=== PATIENT | male | born 1950 | race Caucasian/White ===

== ENCOUNTER 2022-07-14 13:05 | Inpatient (IN) | payer OTHER ==
[~2022-07-14] VITALS: Ht 188 cm; Wt 100.0 kg
[2022-07-14 13:44] LABS: Basophils # (auto) 0 10 ^3/uL (0-0.2); Basophils % (auto) 0.5 % (0.0-2.0); Eosinophils # (auto) 0.1 10 ^3/uL (0-0.8); Eosinophils % (auto) 1.5 % (0.0-7.0); Hematocrit 41.2 % (41.0-53.0); Lymphocytes # (auto) 1.4 10 ^3/uL (0.4-5.4); Lymphocytes % (auto) 16.5 % (10.0-50.0); Mean Corpuscular Hemoglobin 30.5 pg (28.0-32.0); Mean Corpuscular Hgb Conc. 33.9 g/dL (32.0-36.0); Monocytes # (auto) 0.6 10 ^3/uL (0-1.3); Monocytes % (auto) 6.6 % (0.0-12.0); Neutrophils # (auto) 6.5 10 ^3/uL (1.6-8.6); Neutrophils % (auto) 74.9 % (37.0-80.0); Nucleated Red Blood Cells % 0.1 %; Red Blood Cells 4.57 10^6/uL (4.5-5.90); Red Cell Distribution Width 14.1 % (11.8-14.3); White Blood Cell 8.7 10^3/uL (4.4-10.8)
[2022-07-14 13:59] LABS: Albumin 3.6 g/dL (3.4-5.0); BUN/Creatinine Ratio 15.5; Potassium 4.9 mmol/L (3.5-5.1)
[2022-07-14 14:02] LABS: Bilirubin, Total 0.9 mg/dL (0.2-1.0); Total Protein 6.8 g/dL (6.4-8.2)
[2022-07-14] MEDS ORDERED: ASPirin 325 MG TAB PO ONE (14:15)
[2022-07-14] MEDS ORDERED: MORPHINE SULFATE 4 MG/ML SYR/VIAL IV PRN (16:45)
[2022-07-14] MEDS ORDERED: ACETAMINOPHEN 325 MG TAB PO PRN (16:45)
[2022-07-14] MEDS ORDERED: MAALOX PLUS or MAALOX 30 ML PO ONE (16:45)
[2022-07-14] MEDS ORDERED: METOPROLOL TARTRATE 1MG/1ML-5ML VIAL IV PRN (16:45)
[2022-07-14] MEDS ORDERED: NITROGLYCERIN 0.4 MG SL TAB SL PRN (16:45)
[2022-07-14] MEDS ORDERED: ONDANSETRON HCL 4 MG/2 ML VIAL IV PRN (16:45)
[2022-07-14] MEDS ORDERED: SODIUM CHLORIDE 0.9% 1,000 ML IV SCH (16:45)
[2022-07-14] MEDS ORDERED: OXYCODONE W/ ACETAMINOPHEN 5/325MG TABLET PO ONE (17:00)
[2022-07-14] MEDS ORDERED: MORPHINE SULFATE 4 MG/ML SYR/VIAL IV ONE (17:45)
[2022-07-14] MEDS: METOPROLOL TARTRATE 25 MG TAB PO SCH (22:00)
[2022-07-14] MEDS ORDERED: ATORVASTATIN 20 MG TAB PO SCH (22:00)
[2022-07-14] MEDS ORDERED: DEXTROSE (50%) 50ML SYRG IV PRN (22:30)
[2022-07-15] MEDS ORDERED: HYDROmorphone HCL 2 MG/ML VL/or syr IV ONE (01:45)
[2022-07-15 06:37] LABS: Basophils # (auto) 0 10 ^3/uL (0-0.2); Basophils % (auto) 0.4 % (0.0-2.0); Eosinophils # (auto) 0.1 10 ^3/uL (0-0.8); Eosinophils % (auto) 1.6 % (0.0-7.0); Hematocrit 38.3 % (41.0-53.0); Hemoglobin 12.7 g/dL (13.5-17.5); Lymphocytes # (auto) 1.5 10 ^3/uL (0.4-5.4); Lymphocytes % (auto) 23.4 % (10.0-50.0); Mean Corpuscular Hemoglobin 29.9 pg (28.0-32.0); Mean Corpuscular Hgb Conc. 33.1 g/dL (32.0-36.0); Mean Corpuscular Volume 90.3 fL (80.0-100.0); Monocytes # (auto) 0.5 10 ^3/uL (0-1.3); Monocytes % (auto) 7.1 % (0.0-12.0); Neutrophils # (auto) 4.4 10 ^3/uL (1.6-8.6); Neutrophils % (auto) 67.5 % (37.0-80.0); Nucleated Red Blood Cells % 0.1 %; Red Blood Cells 4.25 10^6/uL (4.5-5.90); Red Cell Distribution Width 14.6 % (11.8-14.3); White Blood Cell 6.6 10^3/uL (4.4-10.8)
[2022-07-15 06:41] LABS: Potassium 4.6 mmol/L (3.5-5.1)
[2022-07-15 06:45] LABS: Calcium 10.8 mg/dL (8.5-10.1)
[2022-07-15] MEDS: ACCU-CHEK COMFORT CURVE STRIP VI SCH ×2 (07:58→11:35)
[2022-07-15] MEDS: InsuLIN REG 1unit/0.01ml Soln (100units/ml) SC SCH ×2 (08:04→11:35)
[2022-07-15] MEDS ORDERED: ASPirin 81 mg TAB PO SCH (10:00)
[2022-07-15] MEDS ORDERED: DOCUSATE SOD 100 MG CAP PO SCH (10:00)
[2022-07-15] MEDS ORDERED: CLOPIDOGREL BISULFATE 75 MG TAB PO SCH (10:00)
[2022-07-15] MEDS ORDERED: LISINOPRIL 10 MG TAB PO SCH (10:00)
[2022-07-15] MEDS: METOPROLOL TARTRATE 25 MG TAB PO SCH (10:16)
[2022-07-15] MEDS ORDERED: HYDROcodone-ACET 5/325MG TAB PO PRN (11:15)
[2022-07-15 15:00] VITALS: BP 134/72
[2022-07-15] MEDS ORDERED: InsuLIN REG 1unit/0.01ml Soln (100units/ml) SC SCH (22:00)
== END 2022-07-15 15:46 | disposition left against medical advice (07) | DRG 313 ==
LOC: ER 13:05 → EDBD 13:05 → TELE 16:43
PROVIDERS: ADMIT Hospitalist; ATTEND Hospitalist
DX: R07.9 Chest pain, unspecified (principal); R00.0 Tachycardia, unspecified; R41.3 Other amnesia; Z53.29 Procedure and treatment not carried out because of patient's decision for other reasons; Z20.822 Contact with and (suspected) exposure to COVID-19; I25.10 Atherosclerotic heart disease of native coronary artery without angina pectoris; I10 Essential (primary) hypertension; G89.29 Other chronic pain; M54.50 Low back pain, unspecified; Z95.1 Presence of aortocoronary bypass graft
CPT/HCPCS: 36415; 71045; 80048; 80053; 82962; 83880; 84484; 85025; 87426; 93005; 93306; G0378; J1815